=== PATIENT | female | born 1950 | race Caucasian/White ===

== ENCOUNTER 2022-06-11 06:54 | Observation (INO) ==
--- NOTE | 2022-05-13 16:09 | PAT Medication Instructions ---
Medication Instructions Date of Service May 13, 2022 Home Medications acetaminophen 650 mg tablet 650 mg PO Q6H PRN ascorbic acid (vitamin C) 1,000 mg tablet,extended release (Vitamin C ER) 1,000 mg PO QPM azithromycin 250 mg capsule 250 mg PO QAM PRN calcium 500 mg tablet 1,000 mg PO QPM furosemide 20 mg tablet 20 mg PO BID gabapentin 300 mg (9)-600 mg (69) tablet,extended release 24 hr 300 mg PO PM levothyroxine 75 mcg tablet 75 mcg PO QAM liothyronine 25 mcg tablet 12.5 mcg PO QAM melatonin 10 mg tablet 10 mg PO HS metoprolol succinate 25 mg tablet,extended release 24 hr 25 mg PO BID potassium chloride 20 mEq/15 mL oral liquid 20 meq PO BID prednisone 1 mg tablet 3 mg PO BID vitamin B complex 1 tab PO QPM warfarin 5 mg tablet 5 mg PO USEASDIRECTD warfarin 7.5 mg tablet 7.5 mg PO USEASDIRECTD Continue as directed azithromycin 250 mg capsule 250 mg PO QAM PRN(if needed) ASK your prescriber and surgeon warfarin 5 mg tablet 5 mg PO USEASDIRECTD warfarin 7.5 mg tablet 7.5 mg PO USEASDIRECTD DO NOT take the morning of surgery potassium chloride 20 mEq/15 mL oral liquid 20 meq PO BID furosemide 20 mg tablet 20 mg PO BID Take morning of surgery With a small sip of water, OTHERWISE NOTHING TO EAT OR DRINK AFTER MIDNIGHT: prednisone 1 mg tablet 3 mg PO BID metoprolol succinate 25 mg tablet,extended release 24 hr 25 mg PO BID levothyroxine 75 mcg tablet 75 mcg PO QAM liothyronine 25 mcg tablet 12.5 mcg PO QAM acetaminophen 650 mg tablet 650 mg PO Q6H PRN(if needed) Take evening before surgery vitamin B complex 1 tab PO QPM prednisone 1 mg tablet 3 mg PO BID potassium chloride 20 mEq/15 mL oral liquid 20 meq PO BID metoprolol succinate 25 mg tablet,extended release 24 hr 25 mg PO BID melatonin 10 mg tablet 10 mg PO HS gabapentin 300 mg (9)-600 mg (69) tablet,extended release 24 hr 300 mg PO PM furosemide 20 mg tablet 20 mg PO BID calcium 500 mg tablet 1,000 mg PO QPM ascorbic acid (vitamin C) 1,000 mg tablet,extended release (Vitamin C ER) 1,000 mg PO QPM acetaminophen 650 mg tablet 650 mg PO Q6H PRN(if needed) Other Notes If you have any questions please call us at [phone] or [phone] or [phone] or [phone]
--- NOTE | 2022-05-22 12:00 | Anesthesiology Consultation ---
Date of Service May 22, 2022 Assessment & Plan (1) Encounter for pre-operative examination: - Unable to void at PAT: Patient bringing UA sample to [facility] in near future per PAT tech- Awaiting UA report. - Awaiting surgeon-ordered PCP preop evaluation (scheduled 06/03; Dr. Carmen Burkett). - Awaiting surgeon-ordered cardio preop evaluation (scheduled 05/24, [facility] Jaylon/Talat Osorio PAC). - COVID screening: Per assessment on 05/22: No known COVID-19 positive contacts or current COVID-19 related symptoms. Travel screen negative. Patient vaccinated. At surgeon discretion if preop Covid testing being done. - Outpatient joint assessment: Pt currently scheduled for inpatient pathway. If surgeon requests review for outpatient joint pathway, patient is not recommended candidate for outpatient joint program from anesthesia standpoint. - Hx of medication reaction: "Head itching" with medication given to "relax" her in preop setting prior to RCR in . No further details available per pt. - Check coags AM DOS (warfarin instructions per surgeon/prescriber) Chart Review Chart Review: Patient seen in Pre Admission Testing Teaching & Discussion Pre-Anesthesia Teaching/Discussion Notes: Instructed NPO after midnight before surgery,except medications with 15 cc of water. Medication instructions provided according to the PAT guidelines. History Surgery Operation Date: 06/11/22 09:50 Proposed Procedures p Left Total Knee Arthroplasty - Dashawn Sathya Cruz MD Height/Weight Height: 5 ft 1 in Weight: 97.3 kg Allergies Allergy/AdvReac Type Severity Reaction Status Date / Time cephalexin Allergy Mild Hives Verified 05/13/22 13:15 fluoxetine [From Prozac] Allergy Mild Hives Verified 05/13/22 13:15 Penicillins Allergy Mild Hives Verified 05/13/22 13:15 Medications Home Medications Medication Instructions Recorded Confirmed Last Taken acetaminophen 650 mg tablet 650 mg PO Q6H PRN Pain 05/13/22 05/13/22 Unknown ascorbic acid (vitamin C) 1,000 mg 1,000 mg PO QPM 05/13/22 05/13/22 Unknown tablet,extended release (Vitamin C ER) azithromycin 250 mg capsule 250 mg PO QAM PRN dental 05/13/22 05/13/22 Unknown calcium 500 mg tablet 1,000 mg PO QPM 05/13/22 05/13/22 Unknown furosemide 20 mg tablet 20 mg PO BID 05/13/22 05/13/22 Unknown gabapentin 300 mg (9)-600 mg (69) 300 mg PO PM 05/13/22 05/13/22 Unknown tablet,extended release 24 hr levothyroxine 75 mcg tablet 75 mcg PO QAM 05/13/22 05/13/22 Unknown liothyronine 25 mcg tablet 12.5 mcg PO QAM 05/13/22 05/13/22 Unknown melatonin 10 mg tablet 10 mg PO HS 05/13/22 05/13/22 Unknown metoprolol succinate 25 mg 25 mg PO BID 05/13/22 05/13/22 Unknown tablet,extended release 24 hr potassium chloride 20 mEq/15 mL 20 meq PO BID 05/13/22 05/13/22 Unknown oral liquid prednisone 1 mg tablet 3 mg PO BID 05/13/22 05/13/22 Unknown vitamin B complex 1 tab PO QPM 05/13/22 05/13/22 Unknown warfarin 5 mg tablet 5 mg PO USEASDIRECTD 05/13/22 05/13/22 Unknown warfarin 7.5 mg tablet 7.5 mg PO USEASDIRECTD 05/13/22 05/13/22 Unknown Past Medical History Medical History Atrial fibrillation Paroxysmal s/p MAZE- on coumadin Follows with [facility] cardio (Talat Osorio PAC) Kameron's thyroiditis History of CVA (cerebrovascular accident) Evidence of previous stroke noted during head imaging 2011 when patient had TIA History of mitral valve disease s/p MV repair (for severe MR) with Medtronic annuloplasty ring (2010) History of sleep apnea CPAP Hx of congestive heart failure 2010 - Reason for furosemide Obesity Restless leg syndrome Reason for gabapentin Transient ischemic attack (TIA) 2011 - CT/MRI showed hx of previous stroke Exercise / Class Metabolic Activity III < 4 Walking/Shop/Light housework Past Family History Family History Other No pertinent family history Past Surgical History Surgical History History of arthroscopy of right shoulder ~1997 Hx of mitral valve repair 2011 Hx of umbilical hernia repair Hx of wisdom tooth extraction Past Anesthesia History No Family Hx of Anesthesia Complications and Other ("Head itching" with medication given to "relax" her in preop setting prior to RCR in ) History of PONV No Hx of PONV and Hx of Motion Sickness Social History Smoking Status: Never smoker Do You Dip or Chew Tobacco: No Hx Alcohol Use: No Hx Substance Use: No substance use type: does not use Review of Systems Patient denies chest pain, shortness of breath, fever, chills, cough, wheezing, palpitations. Physical Exam Vital Signs VITALS BP 152/93 P 81 TEMP 98.5 SP02 96%RA RESP 16 PHYSICAL Full cervical extension range of motion. Full TMJ range of motion. TMD 3 finger breaths Mallampati Score 2 Dentition: intact, upper front cap Lungs: clear throughout to auscultation Cardiac: regular rate and rhythm, no murmurs noted Spine: normal Carotid arteries: negative bruit Extremities: no edema Lab Results Anesthesia Preop Results Results Anesthesia Widget: WBC 9.32 K/ul (4.8-10.8) 05/22/22 Hgb 13.9 g/dl (12.0-16.0) 05/22/22 Hct 41.2 % (34.1-44.9) 05/22/22 Plt 244 K/uL (130-400) 05/22/22 Na 140 mmol/L (136-145) 05/22/22 K 3.9 mmol/L (3.5-5.1) 05/22/22 Cl 104 mmol/L (98-107) 05/22/22 CO2 28 mmol/L (21-32) 05/22/22 BUN 19 mg/dl (6-23) 05/22/22 Creat 0.78 mg/dl (0.6-1.2) 05/22/22 Glucose Level 98 mg/dl (70-99(Fasting)) 05/22/22 PT 21.2 Seconds (9.0-12.0) H 05/22/22 PTT 37.0 Seconds (21.0-31.0) H 05/22/22 INR 2.1 (0.9-1.1) H 05/22/22 Blood Type A Positive 05/22/22 Antibody Screen NEGATIVE 05/22/22 Testing Electrocardiogram Date: 11/07/21 NSR with sinus arrhythmia at 65bpm. Rightward axis. NS ST/TWA. Chest X-Ray Date: 05/22/22 FINDINGS: Median sternotomy wires are noted as well as a prosthetic cardiac valve. There is moderate cardiomegaly. There is no evidence for pulmonary edema. Symmetric bilateral hilar enlargement likely reflects dilated central pulmonary vessels. No pneumothorax or pleural effusion is noted. There is no consolidation to suggest pneumonia. IMPRESSION: No acute cardiopulmonary findings. Cardiomegaly. Echocardiogram Date: 10/17/21 EF 65-70%. No RWMA except abnormal (dyssynergic) septal motion consistent with post-operative status. Mild cLVH. Moderate LAD. Evidence of posterior MVR. Hemodynamics suggest possible at least mild mitral stenosis (no significant change compared to report from 2019 per report). Mild MI. Moderate AV sclerosis without stenosis. Proximal ascending aorta mildly dilated at 3.6cm. Transverse aorta mildly dilated at 3.5cm. COVID-19 Risk Screen Screening Information COVID-19 Screen Date: 05/22/22 Exposure 21 Days Family/Household +COVID Last 21 Days: No Exposure 10 Days Any COVID Exposure Last 10 Days: No Symptoms Last 10 Days Experienced COVID Sx Last 10 Days: No + COVID 0-90 Days COVID + in Last 0-90 Days: No
[~2022-06-11 06:54] MED LIST: BUPIVACAINE 0.5 % 5 MG/1 ML PF 10ML VIAL ONE; EPINEPHrine INJ 1 MG/ML AMP ONE; LR 500ML BOLUS, THEN 15ML/HR IV SCH; LR 60ML/HR IV SCH; ROPIVACAINE 0.5% 5 MG/ML 30 ML VIAL ONE; ROPIVACAINE 0.5% HCL/PF 150 MG, BUPIVACAINE 0.75% MPF 20 ML, EPINEPHrine 0.15 MG, Ketor... INFIL SCH; Scopolamine 1 MG TDSY TD SCH; TRANEXAMIC ACID 1,000 MG **IV Intra-op IV SCH; TRANEXAMIC ACID 1,000 MG **IV Pre-op IV SCH; VANCOMYCIN HCL 1,500 MG in SODIUM CHLORIDE 0.9% 500 ML IV SCH
[2022-06-11] MEDS: ACETAMINOPHEN 500 MG TAB PO SCH ×3 (07:58→21:01)
[2022-06-11] MEDS ORDERED: LIDOCAINE 2% 2 ML VIAL/AMP(20MG/ML) INFIL ONE (08:07)
[2022-06-11] MEDS ORDERED: PROPOFOL IV EMULSION 10 MG/ML 20 ML VIAL IV ONE ×5 (08:07→13:31)
[2022-06-11] MEDS ORDERED: fentaNYL citrate 100 MCG/2 ML VIAL ONE (08:07)
[2022-06-11] MEDS ORDERED: MIDAZOLAM HCL 1 MG/ML 2ML VIAL ONE ×2 (08:07→09:59)
[2022-06-11] MEDS ORDERED: ONDANSETRON INJ 2 MG/ML 2 ML VIAL ONE ×2 (08:07→09:59)
[2022-06-11 08:09] LABS: Partial Thromboplastin Ratio 1.1; Partial Thromboplastin Time 29.1 Seconds (21.0-31.0); Prothrombin Time 10.7 Seconds (9.0-12.0)
[2022-06-11] MEDS ORDERED: ePHEDrine sulfate 50 MG/ML AMP ONE (08:11)
--- NOTE | 2022-06-11 10:28 | History & Physical Bridge Note ---
Date of Service June 11, 2022 History & Physical Bridge Note I have examined the patient, reviewed the History & Physical and in the interval since the performance of the History & Physical I have noted the following changes of clinical significance: no changes noted Patient is aware of the risks, is asymptomatic, and tested negative for COVID- 19.
[2022-06-11] MEDS ORDERED: ORTHO JOINT ANESTHETIC ONE (10:48)
[2022-06-11] MEDS ORDERED: ePHEDrine sulfate 50 MG/ML SYR ONE (13:04)
--- NOTE | 2022-06-11 14:04 | Post Operative Brief Note ---
Immediate Post Op Note v1 Date of Surgery June 11, 2022 Pre & Post Diagnosis Operation Date: 06/11/22 10:20 Pre-Op Diagnosis: Left knee degenerative joint disease Post-Op Diagnosis: Left knee degenerative joint disease I identified the patient and participated in the time-out.: Yes Procedure Operation Date: 06/11/22 10:20 Actual Procedures p Left Total Knee Arthroplasty(Left) - Dashawn Cruz MD Surgeon Dashawn Cruz MD Bias Binding Folder C MARIKA Young (No fellow avail) Estimated Blood Loss 100 Findings Consistent with Post-Op Diagnosis Fluids 1700 cc Specimens Left knee contents Anesthesia Type MAC Spinal Regional Complications none
--- NOTE | 2022-06-11 14:05 | Operative Report ---
Post Operative Report Pre & Post Diagnosis Operation Date: 06/11/22 10:20 Pre-Op Diagnosis: Left knee degenerative joint disease Post-Op Diagnosis: Left knee degenerative joint disease I identified the patient and participated in the time-out.: Yes Procedure Operation Date: 06/11/22 10:20 Actual Procedures p Left Total knee replacement, imageless computer assisted navigation - Dashawn Cruz MD Surgeon Dashawn Cruz MD Chef Instructor Abbey Young PA-C (No fellow avail) Estimated Blood Loss 100 Findings See Below Examined Under Anesthesia: ROM -- There was 5 degrees hyperextension to 110 degrees of flexion Ligamentous examination -- revealed stable Jeny, posterior drawer, varus and valgus stress at 0 and 30 degrees. [place] Type IV changes of lateral compartment and grade III changes in the medial& patellofemoral compartments. Fluids 1700 cc Specimens Left knee contents Anesthesia Type MAC Spinal Regional Complications none Indications This is a 72-year-old female who has clinical and radiographic findings consistent with osteoarthritis of the a left knee. I recommended that a left total knee replacement be performed. The patient understands the risks of surgery, which include but not limited to: bleeding, infection, re-operation, damage to nerves and arteries, continued knee pain, knee stiffness, DVT, and . The patient understands all of these instructions and explanations, all of his questions have been satisfactorily addressed and the patient has elected to proceed. Informed consent was signed. Description of Procedure IMPLANTS: 1. Femur: Triathlon #4 Left PS. 2. Tibia: Triathlon #3 [place]. 3. Insert: Triathlon #3 x 9 mm PS X3 poly. 4. Patella: Triathlon A32 x 10 mm X3 poly. 5. Palacos cement. Abbey Young PA-C is assisting with positioning, retracting, and closure due to fellow not available. Procedure: The patient was taken to the Operating Room and placed in the supine position after spinal and adductor canal nerve block was administered. My initials and a multidisciplinary time-out were used to identify the left leg as the correct operative limb. A tourniquet was placed high in the thigh. Prior to the incision, 15mg/kg of intravenous Vancomycin was given. The left leg was then prepped and draped in a standard sterile fashion. An Esmarch was used to exsanguinate the leg and the tourniquet was inflated to 250 mmHg. The planned mid-line 20 cm incision was created exposing the extensor mechanism. The medial parapatellar arthrotomy was made and the patella was everted. The patella was addressed first. It was prepared by reaming from 25 mm down to 14 mm. An A32 button was found to fit best. The peg holes were made in the standard fashion. The femur was addressed next and using computer assisted OrthoAlign with 3 degrees of flexion and 1 degree of valgus, removing 9 mm in the standard fashion for the distal cut. The cut was made and the 4-in-1 cutting block for a size 4 femur was placed. These cuts and the cuts to place the box were made in the standard fashion. The lateral femoral condyle needed to be drilled with a pin to allow cement interface. Our attention was then drawn to the tibia cut with using imageless computer assisted OrthoAlign, taking 2 mm from the lateral low side. There was sufficient extension and flexion gap to fit a 9 mm spacer. A #3 Tibial baseplate fit well. A trial with a 9 mm spacer showed excellent stability in both flexion and extension, with good ligament balance, and thumbs free patellar tracking. Range of motion of 0-110 degrees. The tibial baseplate was prepped for the keel and stem. All components were removed. The tourniquet was deflated. Hemostasis was obtained. 90 ml of total knee cocktail were injected into the soft tissues and periosteum. After a 10 minute break, the limb was exsanguinated again and the tourniquet was re-inflated. All surfaces were copiously irrigated prior to placement of the components. The femoral component followed by Tibial baseplate were cemented in place and the 9 mm X3 poly was placed. Next, the patellar button was placed using the same Palacos cement. Once the cement had cured, the range of motion and stability were unchanged. The extensor mechanism was closed with 1-0 and 0 Vicryl with the knee bent approximately 60 degrees in a standard fashion. The peritenon and deep fascia was closed with 2-0 Vicryl. The subcutaneous layer was closed with 3-0 Vicryl. The skin was closed with Zipline and shield. The limb was cleaned and dried. 4x4 dressing was placed over top followed by ABDs, sterile Webril, and a foot to thigh Papo bandage. The patient was then transferred to the Recovery Room in stable condition. The sponge and needle counts were correct. POST-OP INSTRUCTIONS: The patient will be WBAT. The patient will be admitted to the hospital. Labs will be obtained during the stay. DVT prophylaxis will included resuming her Coumadin which will begin tonight, TEDs, and mechanical foot pumps. The dressing will be changed prior to their discharge or postop day #2 and covered with a Silverlon dressing, whichever comes first as long as the incision is dry. I attest to the content of the Intraoperative Record and any orders documented therein. Any exceptions are noted below.
--- NOTE | 2022-06-11 14:24 | Operative Report ---
Post Operative Report Pre & Post Diagnosis Operation Date: 06/11/22 10:20 Pre-Op Diagnosis: Left knee degenerative joint disease Post-Op Diagnosis: Left knee degenerative joint disease I identified the patient and participated in the time-out.: Yes Procedure Operation Date: 06/11/22 10:20 Actual Procedures p Left Total Knee Arthroplasty(Left) - Dashawn Sathya Cruz MD Surgeon D Nancy CARDOZA Software Engineer Intern Abbey Young PA-C (No fellow avail) Estimated Blood Loss 100 Findings Consistent with Post-Op Diagnosis see operative report Specimens see operative report Drains none Complications none Disposition Accompanied Patient To Recovery: Yes Indications This 72-year-old female presented to the office with complaints of persisting left knee pain. She had tried conservative care measures without improvement. She elected to proceed with surgical intervention after being educated about potential risks and outcomes. Preoperative imaging was obtained. Description of Procedure Patient was administered a spinal anesthetic and then taken to the operating room where she was given sedation. She was prepped and draped in the usual sterile fashion. Please see Dr. Cruz's operative report for specifics of the procedure. I was present for the entire case from initial patient positioning through final wound closure. Assistance was provided in tissue retraction, hemostasis, trial implant placement, final implant placement, and final wound closure. Patient was taken to the recovery room in satisfactory condition. I attest to the content of the Intraoperative Record and any orders documented therein. Any exceptions are noted below.
[2022-06-11] MEDS ORDERED: HYDROmorphone INJ 1 MG/ML SYRINGE IV PRN (14:53)
[2022-06-11] MEDS ORDERED: ATROPINE SULFATE 0.1 MG/ML 10ML SYR IV PRN (14:53)
[2022-06-11] MEDS ORDERED: ePHEDrine sulfate 50 MG/ML AMP IV PRN (14:53)
[2022-06-11] MEDS ORDERED: ONDANSETRON INJ 2 MG/ML 2 ML VIAL IV PRN ×2 (14:53→16:09)
[2022-06-11] MEDS ORDERED: FLUMAZENIL 0.1 MG/1 ML 10 ML VIAL IV PRN (14:53)
[2022-06-11] MEDS ORDERED: PROMETHAZINE HCL 12.5 MG in SODIUM CHLORIDE 0.9% 50 ML IV PRN (14:53)
[2022-06-11] MEDS ORDERED: NALOXONE HCL 0.4 MG/1 ML VIAL/CARP IV PRN ×2 (14:53→16:09)
[2022-06-11] MEDS ORDERED: fentaNYL citrate 100 MCG/2 ML VIAL IV PRN (14:53)
--- NOTE | 2022-06-11 15:02 | XRay Report ---
XR knee LT 1 or 2V routine CLINICAL HISTORY: Postoperative evaluation. COMPARISON: Left knee radiographs April 18, 2022. FINDINGS: Alignment of the total left knee arthroplasty is anatomic. There is no periprosthetic frac ture or unexpected radiopaque foreign body. IMPRESSION: Expected findings following total left knee arthroplasty. ACT 112: Negative or not required by law. Electronically signed by: Akin Rodriguez M.D. 06/11/2022 3:01 PM
--- NOTE | 2022-06-11 15:12 | Anesthesiology Progress Note ---
Date of Service June 11, 2022 Anesthesia Post Procedure Vital Signs Vital Signs: Temp Pulse Pulse Resp BP Pulse Ox O2 Del Method 06/11/22 14:35 61 26 H 113/68 96 Room Air 06/11/22 14:55 36.2 C L 62 13 127/78 100 Room Air 06/11/22 14:45 62 14 113/68 98 Room Air 06/11/22 14:25 66 23 115/71 100 Room Air 06/11/22 14:18 36.2 C L 66 14 123/57 L 99 Room Air 06/11/22 07:40 72 20 161/91 H 98 Room Air Transfer of Care Handoff Completed per policy Notes Mental Status: alert / awake / arousable Patient Amnestic to Procedure: Yes Nausea / Vomiting: adequately controlled Pain: adequately controlled Airway Patency, RR, SpO2: stable & adequate BP & HR: stable & adequate Hydration State: stable & adequate Neuraxial Anesthesia: was administered and sensory block is resolving Anesthetic Complications: no major complications apparent
[2022-06-11] MEDS ORDERED: Scopolamine CHECK PATCH PLACEMENT SCH (16:00)
[2022-06-11] MEDS ORDERED: ALUMINUM/MAGNESIUM SUSP 30 ML UDC PO PRN (16:09)
[2022-06-11] MEDS ORDERED: bisacodyL 10 MG SUPP PR PRN (16:09)
[2022-06-11] MEDS ORDERED: VANCOMYCIN CONSULT ACTIVE PRN (16:09)
[2022-06-11] MEDS ORDERED: MAGNESIUM HYDROXIDE SUSP 30 ML UDC PO PRN (16:09)
[2022-06-11] MEDS ORDERED: METOCLOPRAMIDE HCL INJ 5 MG/ML 2 ML VIAL IV PRN (16:09)
[2022-06-11] MEDS ORDERED: diphenhydrAMINE 50 MG/ML VIAL IV PRN (16:09)
--- NOTE | 2022-06-11 16:56 | Hospitalist Consultation ---
Date of Consultation June 11, 2022 Assessment & Plan (1) Atrial fibrillation: Carla is a 72yo F with a PMHx of HTN, GERD< MR, Afib, Hashimotos, TERESA on CPAP, PMR, CHF, HLD s/p scheduled L TKA S/p left total knee arthroplasty DVT prophylaxis, pain control, ambulation per primary team [employer] patient is on warfarin for A. fib 12-24 hours postoperatively recommend resuming warfarin with 1mpk BID lovenox bridge Takes warfarin, med list updated to 7.5mg daily. CHF with preserved ejection fraction No acute decompensation/evidence of volume overload Stress Test 06/04/22: NOrmal myocardial perfusion, no reversible or fixed ischemia, LVSF normal, EF normal. No chest pain, chest pressure, difficulty breathing at bedside May resume Lasix daily tomorrow Afib -Warfarin/Lovenox as noted above Continue metoprolol succinate 25 mg twice daily Warfarin dose updated, patient reports takes 7.5 mg every day no longer alternates with 5 mg GERD -Continue PPI HLD - Statin intolerant Hypothroidism -Continue Synthroid 75 mcg daily - liothyronine 12.5 mcg daily PMR - Weaning steroids as outpatient -Initially entered at 3mg BID prednisone, confirmed with pt per rheum should be on 1mg daily and did take 06/11. Will update for 06/12 dose Outpatient follow-up to room HTN - MTP as noted DVT prophylaxis: Warfarin Diet: Heart healthy Disposition: Medical/surgical CODE STATUS: Full code (2) Kameron's thyroiditis: (3) History of sleep apnea: (4) Hx of congestive heart failure: (5) Transient ischemic attack (TIA): (6) History of mitral valve disease: (7) History of CVA (cerebrovascular accident): History of Present Illness Attending Physician: Dashawn Cruz MD History of Present Illness Carla is a 72yo F with a PMHx of HTN, GERD< MR, Afib, Hashimotos, TERESA on CPAP, PMR, CHF, HLD s/p scheduled L TKA Stress Test 06/04/22: NOrmal myocardial perfusion, no reversible or fixed ischemia, LVSF normal, EF normal. Lasix 20mg daily Gabapentin 300mg TID for restless leg KCL 10meq daily Synthroid 75mcg daily AM Liothyronine 12.5mcg daily AM MTP Succinate 25mg BID Prednisone documented as 3mg BID --> confirmed with pt per rheum 1mg daily and did take this morning. Warfarin: previously documented as 2.5mg Tu, Th, Sat, Chandler & 5mg dablet daily; discussed and confirmed with pt that she is actulaly now on 7.5mg daily and was bridged with lovenox until yesterday. Baldomero is seen at the bedside. She is awake, alert and feels well after surgery. She reports no pain after surgery, feels her feet were intermittently tingly in the toes bilaterally but this is improving. Sensation to soft touch is intact, and she is able to move her ankles and toes without difficulty. She denies chest pain, chest pressure, shortness of breath, lightheadedness, dizziness, fever, chills. She is using her incentive spirometer. Clarified medications with the patient, she is a good historian and notes updated medications as above. Pertinent changes from what was documented include prednisone is actually 1 mg daily in the morning, and warfarin is now 7.5 mg every day rather than alternating with 5 mg. No questions or concerns at bedside. Just finished a meal which she tolerated with good appetite and no nausea. No concerns at bedside, normotensive. Medical History: Reviewed Medications: Reviewed Surgical History: Reviewed Allergies: Reviewed Social History: No tobacco/alcohol use Code Status: Full Allergies Allergy/AdvReac Type Severity Reaction Status Date / Time cephalexin Allergy Mild Hives Verified 06/11/22 07:44 fluoxetine [From Prozac] Allergy Mild Hives Verified 06/11/22 07:44 Penicillins Allergy Mild Hives Verified 06/11/22 07:44 Home Medications Medication Instructions Recorded Confirmed Type acetaminophen 650 mg tablet 650 mg PO Q6H PRN Pain 05/13/22 06/11/22 History ascorbic acid (vitamin C) 1,000 mg 1,000 mg PO QPM 05/13/22 06/11/22 History tablet,extended release (Vitamin C ER) azithromycin 250 mg capsule 250 mg PO QAM PRN dental 05/13/22 06/11/22 History calcium 500 mg tablet 1,000 mg PO QPM 05/13/22 06/11/22 History furosemide 20 mg tablet 20 mg PO BID 05/13/22 06/11/22 History gabapentin 300 mg (9)-600 mg (69) 300 mg PO PM 05/13/22 06/11/22 History tablet,extended release 24 hr levothyroxine 75 mcg tablet 75 mcg PO QAM 05/13/22 06/11/22 History liothyronine 25 mcg tablet 12.5 mcg PO QAM 05/13/22 06/11/22 History melatonin 10 mg tablet 10 mg PO HS 05/13/22 06/11/22 History metoprolol succinate 25 mg 25 mg PO BID 05/13/22 06/11/22 History tablet,extended release 24 hr potassium chloride 20 mEq/15 mL 20 meq PO BID 05/13/22 06/11/22 History oral liquid prednisone 1 mg tablet 1 mg PO DAILY 05/13/22 06/11/22 History vitamin B complex 1 tab PO QPM 05/13/22 06/11/22 History warfarin 7.5 mg tablet 7.5 mg PO DAILY 05/13/22 06/11/22 History Patient History Medical History (Updated 06/11/22 @ 17:24 by Sundeep Pritchett MD) Atrial fibrillation Paroxysmal s/p MAZE- on coumadin Follows with [facility] cardio (Talat Osorio [facility]) Kameron's thyroiditis History of CVA (cerebrovascular accident) Evidence of previous stroke noted during head imaging 2011 when patient had TIA History of mitral valve disease s/p MV repair (for severe MR) with Medtronic annuloplasty ring (2010) History of sleep apnea CPAP Hx of congestive heart failure 2010 - Reason for furosemide Obesity Restless leg syndrome Reason for gabapentin Transient ischemic attack (TIA) 2011 - CT/MRI showed hx of previous stroke Surgical History History of arthroscopy of right shoulder ~1997 Hx of mitral valve repair 2011 Hx of umbilical hernia repair Hx of wisdom tooth extraction Family History Other No pertinent family history Social History Smoking Status: Never smoker Second Hand Exposure: No; Do You Dip or Chew Tobacco: No; Tobacco Cessation Education Requested by Patient: No Hx Alcohol Use: No Hx Substance Use: No Preferred Language: Tamazight Communication Ability: Effective Straw Boss Required: No Beliefs That Will Affect Care: None Current Living Situation: Spouse Other Information That Helps Us Care for You: No Feels Safe at Home: Yes Safety Concerns: Feels Safe At This Time Assistive Devices: Cane, Glasses and Walker Review of Systems Review of Systems: All systems reviewed & are unremarkable except as noted in HPI & below Physical Exam Physical Exam: General: A&Ox3. NAD. Cooperative. Pleasant, conversive, answers questions appropriately with linear thought process HEENT: Atraumatic, normocephalic. Vision/hearing grossly intact. Pupils equal and reactive to light Pulm: CTAB A&P. -wheezes, -rales, -rhonchi. Symmetrical chest rise. No increased work of breathing. No respiratory distress. Cardiac: RRR, -mrg. Radial pulses intact and symmetrical. Abdominal: Nontender, nondistended, soft. BS present. Extremities: Left knee in postsurgical wrap and dressing. Sensation soft touch in toes intact bilaterally, able to wiggle toes without difficulty. PT pulse intact bilaterally. Results & Data Results & Data ([facility]) Vital Signs (Past 12 Hours) Vital Signs Temp Pulse Pulse Resp BP Pulse Ox O2 Del Method 06/11/22 16:31 36.7 C 67 18 149/85 H 100 06/11/22 16:18 Room Air 06/11/22 15:51 36.4 C L 69 18 127/78 96 Room Air 06/11/22 15:25 61 13 117/67 96 Room Air 06/11/22 14:35 61 26 H 113/68 96 Room Air 06/11/22 14:55 36.2 C L 62 13 127/78 100 Room Air 06/11/22 14:45 62 14 113/68 98 Room Air 06/11/22 14:25 66 23 115/71 100 Room Air 06/11/22 14:18 36.2 C L 66 14 123/57 L 99 Room Air 06/11/22 07:40 72 20 161/91 H 98 Room Air PG Care Time/CCT Total # of Minutes Spent Total Time Spent with Patient: Total time spent is greater than 50% in coordination of care (as documented) at patient's floor/unit and/or counseling patient: Coding Level of Care Code 38826 Inpt Consult Level 4 Diagnoses Atrial fibrillation I48.91 Kameron's thyroiditis E06.3 History of sleep apnea Z86.69 Hx of congestive heart failure Z86.79 Transient ischemic attack (TIA) G45.9 History of mitral valve disease Z86.79 History of CVA (cerebrovascular accident) Z86.73
[2022-06-11] MEDS: SODIUM CHLORIDE 0.9% 1000ML 1,000 ML IV SCH (16:58)
[2022-06-11] MEDS ORDERED: WARFARIN SOD 5 MG TAB PO ONE (18:00)
[2022-06-11] MEDS: KETOROLAC TROMETHAMINE 15 MG/ML VIAL IV SCH (18:14)
[2022-06-11] MEDS: FUROSEMIDE 20 MG TAB PO SCH (18:16)
[2022-06-11] MEDS: ASCORBIC ACID 500 MG TAB PO SCH (18:16)
[2022-06-11] MEDS: FERROUS GLUCONATE 324 MG TAB PO SCH (18:18)
[2022-06-11] MEDS ORDERED: VANCOMYCIN HCL 1,500 MG in SODIUM CHLORIDE 0.9% 500 ML IV SCH (20:00)
[2022-06-11] MEDS: SENNA 8.6 MG TAB PO SCH (20:11)
[2022-06-11] MEDS: DOCUSATE SODIUM 100 MG CAP PO SCH (20:12)
[2022-06-11] MEDS: MELATONIN 3 MG TAB PO SCH (20:13)
[2022-06-11] MEDS: METOPROLOL SUCC 25MG EXT REL TAB PO SCH (20:13)
[2022-06-11] MEDS: POTASSIUM CHLORIDE 20 MEQ/15 ML UDC PO SCH (20:14)
[2022-06-11] MEDS: GABAPENTIN 300 MG CAP PO SCH (20:14)
[2022-06-11] MEDS ORDERED: predniSONE 1 MG TAB PO SCH (21:00)
[2022-06-11] MEDS: oxyCODONE HCL IR 5 MG TAB (IMMEDIATE RELEASE) PO PRN (21:01)
[2022-06-12] MEDS: KETOROLAC TROMETHAMINE 15 MG/ML VIAL IV SCH ×3 (00:24→11:58)
[2022-06-12] MEDS ORDERED: VANCOMYCIN HCL 1,500 MG in SODIUM CHLORIDE 0.9% 250 ML IV SCH (00:30)
[2022-06-12] MEDS: ACETAMINOPHEN 500 MG TAB PO SCH ×3 (05:45→21:05)
[2022-06-12] MEDS: LIOTHYRONINE SODIUM 25 MCG TAB PO SCH (05:45)
[2022-06-12] MEDS: LEVOTHYROXINE SODIUM 75 MCG TABLET PO SCH (05:47)
[2022-06-12] MEDS: SODIUM CHLORIDE 0.9% 1000ML 1,000 ML IV SCH (06:02)
[2022-06-12 06:45] LABS: Hematocrit (blood only) 33.5 % (34.1-44.9); Hemoglobin 11.4 g/dl (12.0-16.0); Mean Corpuscular Hemoglobin 31.8 pg (25.0-34.0); Mean Corpuscular Volume 93.6 fL (80.0-100.0); Mean Platelet Volume 10.4 fL (9.4-12.3); Platelet Count 185 K/uL (130-400); RDW Coefficient of Variation 12.3 % (11.5-14.5); RDW Standard Deviation 42.5 fL (36.4-46.3); Red Blood Count 3.58 M/uL (3.93-5.22); White Blood Count 11.81 K/ul (4.8-10.8)
[2022-06-12 07:09] LABS: BUN Creatinine Ratio 25.6 (10-20); Calcium 8.6 mg/dl (8.5-10.1); Creatinine Clr Calc Pharmacy 65.1 ml/min; Est GFR (African American) 82.9 ml/min; Est GFR (Non-African American) 71.5 ml/min; Potassium 4.2 mmol/L (3.5-5.1)
--- NOTE | 2022-06-12 07:35 | Orthopedic Progress Note ---
Date of Service June 12, 2022 Assessment & Plan (1) Osteoarthritis of left knee: Plan: POD #1 s/p L TKA, doing as well as expected. Resume diet. WBAT with walker. OOB to chair. Continue pain control. DVT prophylaxis: TEDs 3 weeks, foot pumps while in hospital, resume Coumadin. Plan to change dressing to Silverlon prior to discharge or POD #2, whichever comes first, if incision is dry. PT/OT. Appreciate medicine input. D/C planning to home. Admission and Anticipated Discharge Date Admission Date: June 11, 2022 Subjective Dull ache in the left knee Physical Exam Physical Exam: LLE: Dressing is clean, dry, intact. Sensation to light touch is intact. Calf soft non-tender. Wiggling toes. Able preform straight leg raise. Results & Data ([facility]) Vital Signs (Past 12 Hours) Vital Signs Temp Pulse Resp BP Pulse Ox O2 Del Method 06/12/22 02:56 36.5 C 72 20 107/66 92 Room Air 06/11/22 20:00 Room Air, CPAP 06/11/22 22:59 37.5 C 83 18 101/60 92 CPAP Laboratory Results Laboratory Results WBC 11.81 K/ul (4.8-10.8) H 06/12/22 06:07 RBC 3.58 M/uL (3.93-5.22) L 06/12/22 06:07 Hgb 11.4 g/dl (12.0-16.0) L 06/12/22 06:07 Hct 33.5 % (34.1-44.9) L 06/12/22 06:07 MCV 93.6 fL (80.0-100.0) 06/12/22 06:07 MCH 31.8 pg (25.0-34.0) 06/12/22 06:07 MCHC 34.0 g/dL (32.0-36.0) 06/12/22 06:07 RDW Std Deviation 42.5 fL (36.4-46.3) 06/12/22 06:07 RDW Coeff of Vandana 12.3 % (11.5-14.5) 06/12/22 06:07 Plt Count 185 K/uL (130-400) 06/12/22 06:07 MPV 10.4 fL (9.4-12.3) 06/12/22 06:07 PT 11.0 Seconds (9.0-12.0) 06/12/22 06:07 INR 1.0 (0.9-1.1) 06/12/22 06:07 APTT 29.1 Seconds (21.0-31.0) 06/11/22 07:38 PTT Ratio 1.1 06/11/22 07:38 Sodium 137 mmol/L (136-145) 06/12/22 06:07 Potassium 4.2 mmol/L (3.5-5.1) 06/12/22 06:07 Chloride 106 mmol/L (98-107) 06/12/22 06:07 Carbon Dioxide 24 mmol/L (21-32) 06/12/22 06:07 Anion Gap 7 (3-11) 06/12/22 06:07 BUN 21 mg/dl (6-23) 06/12/22 06:07 Creatinine 0.82 mg/dl (0.6-1.2) 06/12/22 06:07 Est Cr Clr Drug Dosing 65.1 ml/min 06/12/22 06:07 Est GFR ( Amer) 82.9 ml/min 06/12/22 06:07 Est GFR (Non-Af Amer) 71.5 ml/min 06/12/22 06:07 BUN/Creatinine Ratio 25.6 (10-20) H 06/12/22 06:07 Glucose 96 mg/dl (70-99(Fasting)) 06/12/22 06:07 Calcium 8.6 mg/dl (8.5-10.1) 06/12/22 06:07 SARS-CoV-2, RNA, NAAT NEGATIVE (NEGATIVE) 06/11/22 Unknown Impressions Knee X-Ray 06/11/22 14:37 XR knee LT 1 or 2V routine CLINICAL HISTORY: Postoperative evaluation. COMPARISON: Left knee radiographs April 18, 2022. FINDINGS: Alignment of the total left knee arthroplasty is anatomic. There is no periprosthetic fracture or unexpected radiopaque foreign body. IMPRESSION: Expected findings following total left knee arthroplasty. ACT 112: Negative or not required by law. Electronically signed by: Akin Rodriguez M.D. 06/11/2022 3:01 PM
[2022-06-12] MEDS ORDERED: dexAMETHasone 10 MG in SYRINGE 0 ML IV SCH (08:00)
--- NOTE | 2022-06-12 08:27 | Hospitalist Progress Note ---
Date of Service June 12, 2022 Assessment & Plan (1) Osteoarthritis of left knee: Plan: Carla is a 72yo F with a PMHx of HTN, GERD< MR, Afib, Hashimotos, TERESA on CPAP, PMR, CHF, HLD s/p scheduled L TKA POD # 1 S/p left total knee arthroplasty with Dr Cruz 06/11. EBL 100cc. fluids 1700cc Pain control/bowel regimen per primary service *Started iron PO BID per primary service -- issues with constipation at baseline, decreased to once daily. No prior iron studies --> added miralax, increase as needed DVT prophylaxis per primary service -- patient on coumadin 7.5mg daily for hx afib. --> orthopedics given 5mg coumadin evening 06/11, additional 5mg ordered for tonight --> messaged orthopedics to increase the coumadin for 7.5mg for today and add on Lovenox bridge 1mg/kg until INR therapeutic (INR 1.0 on AM labs) --> no response yet, would like to start lovenox richy if bleeding felt stable PT/OT per primary service PMR Hx of such Weaning steroids as outpatient--> initially entered at 3mg BID prednisone, confirmed with pt per rheum should be on 1mg daily and did take 06/11 -- updated for dose 06/12 Decadron 8mg PO x 1 given 06/12 am -- hx PMR, no stress dose steroids needed currently. Follows with Lisbeth Juan from [facility] [place], and states had been able to wean steroids to prednisone 1mg daily Follow up outpatient with Dr Juan with Rheumatology PT/OT consulted (2) Atrial fibrillation: Plan: hx mitral valve insufficinecy s/p mitral valve repair w/ Medtronic annuloplasty ring [facility] in [place], paroxysmal atrial fibrillation s/p MAZE, Hx HFpEF--> follows with Cardiology in [place] (Talat Osorio PA-C). Per note, pt had gone into afib 04/30, and arranged for ANG and cardioversion but patient converted to SR prior to that. Holter didn't show any afib at that time. Elected to continue current therapy/not pursue ablation at that time. Hx hypothyroidism/Hashimotos and on Synthroid/cytomel. No recent TSH in system, will add to AM labs w/ reflex Continue metoprolol succinate 25mg BID Warfarin dose updated, patient reports takes 7.5 mg every day no longer alternates with 5 mg --> given 5mg Coumadin last evening 06/11, additional 5mg ordered for tonight 06/12 -- see above regarding increased dose/lovenox bridge (3) Kameron's thyroiditis: Plan: Will check TSH w/ next labs given patient in/out afib last cards office and no values in system -IN meantime, continue Synthroid 75 mcg daily, liothyronine 12.5 mcg daily (4) History of sleep apnea: Plan: Hx of such, no CPAP ordered --> ordered for tonight given continued inpatient stay (5) Hx of congestive heart failure: Plan: CHF with preserved ejection fraction -- last ECHO October 2021 with EF 65-70% No acute decompensation/evidence of volume overload Stress Test 06/04/22: NOrmal myocardial perfusion, no reversible or fixed ischemia, LVSF normal, EF normal. No chest pain, chest pressure, difficulty breathing at bedside Resumed lasix 20mg BID, did have some slight swelling to LE this morning --- monitor for any evidence DVT while getting patient back into therapeutic range Monitor BMP in AM (6) History of mitral valve disease: Plan: hx repair as above Plan continued inpatient stay recommend starting lovenox bridge for patient for DVT prophylaxis until INR therapeutic. Messaged ortho MARIKA and provider regarding recommendations as well hospitalist group will follow along, please call with any questions/concerns Admission and Anticipated Discharge Date Admission Date: June 11, 2022 Supervising Physician Co-Signing Physician Notes PA Supervision Note: I did not personally see or examine the patient today, but I verified all townsend points of SHA Arreaga's assessment and plan with the following exceptions/additions: There is no need for bridging therapeutic Lovenox for Afib when she is in a normal sinus rhythm here. Increased risk for bleeding. Dc Lovenox and simply resumed warfarin-this will need to be redosed tomorrow Subjective Patient eval this morning. Doing alright, only able to ambulate about 15 feet with PT, rec to continue inpatient stay. Passing some gas but no BM. Typically takes Benefiber in AM, eats raisin bran, and takes miralax on occasion. WIll ensure on regimen/increase if needed. Had episode of urinary retention this morning requiring straight cath, no lower abdominal pain. No fever/chills, chest pain, shortness of breath, nausea or vomiting. Got dose of decadron this morning, also receiving scheduled toradol. Does have some tightness around taina hose -- asking RN for larger size as rolling down. Review of Systems Review of Systems: All systems reviewed & are unremarkable except as noted in HPI & below Physical Exam Physical Exam: General: WD/WN obese female sitting up in chair, NAD HEENT: head normocephalic, atraumatic, mmm, trachea midline without deviation Resp: decreased air movement bilaterally due to decreased effort, no wheezing/crackles, diminished in the bases, 95% on RA CV: RRR, +murmur, trace edema b/l LE, no calf tenderness, pulses palpable, sensation intact, cap refill wnl GI: +BS, +distended, nontender : no jernigan MSK/Neuro: L knee dressing c/d/i, avery wrap and ice present, able to wiggle toes/pulses palpable, sensation intact distally Skin: warm, dry Psych: AOx3, cooperative, pleasant Results & Data Results & Data ([facility]) Vital Signs (Past 12 Hours) Vital Signs Temp Pulse Resp BP Pulse Ox O2 Del Method 06/12/22 08:11 36.5 C 68 18 112/71 93 06/12/22 02:56 36.5 C 72 20 107/66 92 Room Air 06/11/22 22:59 37.5 C 83 18 101/60 92 CPAP Laboratory Results 06/12/22 06/12/22 06/12/22 Range/Units 06:07 06:07 06:07 WBC (4.8-10.8) K/ul RBC (3.93-5.22) M/uL Hgb (12.0-16.0) g/dl Hct (34.1-44.9) % MCV (80.0-100.0) fL MCH (25.0-34.0) pg MCHC (32.0-36.0) g/dL RDW Std Deviation (36.4-46.3) fL RDW Coeff of Vandana (11.5-14.5) % Plt Count (130-400) K/uL MPV (9.4-12.3) fL PT 11.0 (9.0-12.0) Seconds INR 1.0 (0.9-1.1) Sodium 137 (136-145) mmol/L Potassium 4.2 (3.5-5.1) mmol/L Chloride 106 (98-107) mmol/L Carbon Dioxide 24 (21-32) mmol/L Anion Gap 7 (3-11) BUN 21 (6-23) mg/dl Creatinine 0.82 (0.6-1.2) mg/dl Est Cr Clr Drug Dosing 65.1 ml/min Est GFR ( Amer) 82.9 ml/min Est GFR (Non-Af Amer) 71.5 ml/min BUN/Creatinine Ratio 25.6 H (10-20) Glucose 96 (70-99(Fasting)) mg/dl Calcium 8.6 (8.5-10.1) mg/dl Hepatitis C Ab (EIA) Pending Hep C Ab Signal/Cutoff Pending 06/12/22 Range/Units 06:07 WBC 11.81 H (4.8-10.8) K/ul RBC 3.58 L (3.93-5.22) M/uL Hgb 11.4 L (12.0-16.0) g/dl Hct 33.5 L (34.1-44.9) % MCV 93.6 (80.0-100.0) fL MCH 31.8 (25.0-34.0) pg MCHC 34.0 (32.0-36.0) g/dL RDW Std Deviation 42.5 (36.4-46.3) fL RDW Coeff of Vandana 12.3 (11.5-14.5) % Plt Count 185 (130-400) K/uL MPV 10.4 (9.4-12.3) fL PT (9.0-12.0) Seconds INR (0.9-1.1) Sodium (136-145) mmol/L Potassium (3.5-5.1) mmol/L Chloride (98-107) mmol/L Carbon Dioxide (21-32) mmol/L Anion Gap (3-11) BUN (6-23) mg/dl Creatinine (0.6-1.2) mg/dl Est Cr Clr Drug Dosing ml/min Est GFR ( Amer) ml/min Est GFR (Non-Af Amer) ml/min BUN/Creatinine Ratio (10-20) Glucose (70-99(Fasting)) mg/dl Calcium (8.5-10.1) mg/dl Hepatitis C Ab (EIA) Hep C Ab Signal/Cutoff Diagnostic Findings Knee X-Ray 06/11/22 14:37 XR knee LT 1 or 2V routine CLINICAL HISTORY: Postoperative evaluation. COMPARISON: Left knee radiographs April 18, 2022. FINDINGS: Alignment of the total left knee arthroplasty is anatomic. There is no periprosthetic fracture or unexpected radiopaque foreign body. IMPRESSION: Expected findings following total left knee arthroplasty. ACT 112: Negative or not required by law. Electronically signed by: Akin Rodriguez M.D. 06/11/2022 3:01 PM PG Care Time/CCT Total # of Minutes Spent Total Time Spent with Patient: Total time spent is greater than 50% in coordination of care (as documented) at patient's floor/unit and/or counseling patient: Coding Level of Care Code 58034 Subseq Obs Care Lvl 3 Diagnoses Osteoarthritis of left knee M17.12 Atrial fibrillation I48.91 Kameron's thyroiditis E06.3 History of sleep apnea Z86.69 Hx of congestive heart failure Z86.79 History of mitral valve disease Z86.79
[2022-06-12] MEDS: DOCUSATE SODIUM 100 MG CAP PO SCH ×2 (08:28→21:04)
[2022-06-12] MEDS: ASCORBIC ACID 500 MG TAB PO SCH ×2 (08:28→16:39)
[2022-06-12] MEDS: MULTIVITAMIN TAB PO SCH (08:29)
[2022-06-12] MEDS: POTASSIUM CHLORIDE 20 MEQ/15 ML UDC PO SCH ×2 (08:29→21:05)
[2022-06-12] MEDS: FERROUS GLUCONATE 324 MG TAB PO SCH (08:29)
[2022-06-12] MEDS: METOPROLOL SUCC 25MG EXT REL TAB PO SCH ×2 (08:29→21:08)
[2022-06-12] MEDS: FUROSEMIDE 20 MG TAB PO SCH ×2 (08:30→16:39)
[2022-06-12] MEDS: oxyCODONE HCL IR 5 MG TAB (IMMEDIATE RELEASE) PO PRN ×2 (08:32→19:15)
[2022-06-12] MEDS: predniSONE 1 MG TAB PO SCH (09:09)
[2022-06-12] MEDS: POLYETHYLENE (MIRALAX) 17 GM PACK PO SCH (15:53)
[2022-06-12] MEDS: ORTHO WARFARIN NOMOGRAM SCH (15:54)
[2022-06-12] MEDS ORDERED: WARFARIN SOD 5 MG TAB PO SCH (16:00)
[2022-06-12] MEDS ORDERED: ENOXAPARIN 100 MG/1ML SYR SQ SCH (16:00)
[2022-06-12] MEDS ORDERED: WARFARIN SOD 7.5 MG TAB PO SCH (16:00)
[2022-06-12] MEDS: MELATONIN 3 MG TAB PO SCH (21:04)
[2022-06-12] MEDS: GABAPENTIN 300 MG CAP PO SCH (21:04)
[2022-06-12] MEDS: SENNA 8.6 MG TAB PO SCH (21:04)
[2022-06-13] MEDS: oxyCODONE HCL IR 5 MG TAB (IMMEDIATE RELEASE) PO PRN (02:54)
[2022-06-13] MEDS: LIOTHYRONINE SODIUM 25 MCG TAB PO SCH (05:53)
[2022-06-13] MEDS: LEVOTHYROXINE SODIUM 75 MCG TABLET PO SCH (05:54)
[2022-06-13] MEDS: ACETAMINOPHEN 500 MG TAB PO SCH ×3 (05:54→21:31)
[2022-06-13] MEDS: HYDROmorphone INJ 0.5 MG/0.5 ML SYR IV PRN ×3 (06:05→20:45)
[2022-06-13 07:31] LABS: Hematocrit (blood only) 33.3 % (34.1-44.9); Hemoglobin 11.1 g/dl (12.0-16.0); Mean Corpuscular Hemoglobin 31.7 pg (25.0-34.0); Mean Corpuscular Hgb Conc 33.3 g/dL (32.0-36.0); Mean Corpuscular Volume 95.1 fL (80.0-100.0); Mean Platelet Volume 9.8 fL (9.4-12.3); Platelet Count 205 K/uL (130-400); RDW Coefficient of Variation 12.6 % (11.5-14.5); RDW Standard Deviation 43.8 fL (36.4-46.3); White Blood Count 14.58 K/ul (4.8-10.8)
[2022-06-13 07:50] LABS: INR 1.2 (0.9-1.1); Prothrombin Time 12.4 Seconds (9.0-12.0)
[2022-06-13 07:51] LABS: BUN Creatinine Ratio 27.5 (10-20); Creatinine Clr Calc Pharmacy 77.4 ml/min; Est GFR (African American) 100.8 ml/min; Magnesium 1.8 mg/dl (1.7-2.4); Potassium 3.9 mmol/L (3.5-5.1)
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
[2022-06-13] MEDS ORDERED: FERROUS GLUCONATE 324 MG TAB PO SCH (09:00)
[2022-06-13] MEDS: FUROSEMIDE 20 MG TAB PO SCH ×2 (09:34→16:55)
[2022-06-13] MEDS: POTASSIUM CHLORIDE 20 MEQ/15 ML UDC PO SCH (09:37)
[2022-06-13] MEDS: DOCUSATE SODIUM 100 MG CAP PO SCH ×2 (09:38→20:56)
[2022-06-13] MEDS: POLYETHYLENE (MIRALAX) 17 GM PACK PO SCH ×2 (09:38→20:57)
[2022-06-13] MEDS: predniSONE 1 MG TAB PO SCH (09:39)
[2022-06-13] MEDS: ASCORBIC ACID 500 MG TAB PO SCH ×2 (09:39→16:55)
[2022-06-13] MEDS: MULTIVITAMIN TAB PO SCH (09:39)
[2022-06-13] MEDS: METOPROLOL SUCC 25MG EXT REL TAB PO SCH ×2 (10:07→20:56)
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
[2022-06-13] MEDS ORDERED: predniSONE 1 MG TAB PO ONE (13:00)
[2022-06-13] MEDS: ORTHO WARFARIN NOMOGRAM SCH (15:10)
[2022-06-13] MEDS ORDERED: WARFARIN SOD 5 MG TAB PO ONE (16:00)
[2022-06-13] MEDS: POTASSIUM CHLORIDE CRTAB 20 MEQ TABCR PO SCH (20:56)
[2022-06-13] MEDS: GABAPENTIN 300 MG CAP PO SCH (20:57)
[2022-06-13] MEDS: SENNA 8.6 MG TAB PO SCH (20:57)
[2022-06-13] MEDS: MELATONIN 3 MG TAB PO SCH (20:57)
[2022-06-14] MEDS: HYDROmorphone INJ 0.5 MG/0.5 ML SYR IV PRN (04:42)
[2022-06-14] MEDS: ACETAMINOPHEN 500 MG TAB PO SCH ×2 (05:29→13:51)
[2022-06-14] MEDS: LEVOTHYROXINE SODIUM 75 MCG TABLET PO SCH (05:30)
[2022-06-14] MEDS: LIOTHYRONINE SODIUM 25 MCG TAB PO SCH (05:30)
--- NOTE | 2022-06-14 07:59 | Hospitalist Progress Note ---
Date of Service June 14, 2022 Assessment & Plan (1) Osteoarthritis of left knee: Plan: Carla is a 72yo F with a PMHx of HTN, GERD< MR, Afib, Hashimotos, TERESA on CPAP, PMR, CHF, HLD s/p scheduled L TKA POD # 3 S/p left total knee arthroplasty with Dr Cruz 06/11. EBL 100cc. fluids 1700cc WBC elevation likely 2nd to decadron 10mg as given POD#1, patient afebrile Pain control/bowel regimen per primary service *Started iron PO BID per primary service -- issues with constipation at baseline, decreased to once daily and stopped for 11 given constipation No prior iron studies--> added miralax, increased toTID as remaining inpatient DVT prophylaxis per primary service -- patient on coumadin 7.5mg daily for hx afib. --> resumed coumadin per nomogram, monitor at rehab and recommend reaching out to her coag clininc for further recommendations --> Monitor INR at rehab to ensure back to therapeutic range PT/OT per primary service --> initially for home with HH, but anxious about falling at home. Arrangements made for rehab for this afternoon resumed her lasix BID, however patient refusing yesterday (06/13) as not wanting to get out of bed since jernigan removed. encouraged RN to encourage compliance last night.-_> slight volume up today and to continue to monitor weights/encourage compliance with medications and low salt diet at discharge PMR Hx of such Weaning steroids as outpatient--> initially entered at 3mg BID prednisone, confirmed with pt per rheum should be on 1mg daily and did take 06/11 -- updated for dose 06/12 Decadron 8mg PO x 1 given 11 am -- hx PMR, no stress dose steroids needed currently. Follows with Lisbeth Juan from [facility] [place], and states had been able to wean steroids to prednisone 1mg daily given additional 1mg dose prednisone 06/13 for low bp/nausea, possible need for stress dose --> reported improvement today/no issues and can continue her ususal prednisone at discharge Follow up outpatient with Dr Juan with Rheumatology PT/OT consulted (2) Atrial fibrillation: Plan: hx mitral valve insufficinecy s/p mitral valve repair w/ Medtronic annuloplasty ring [facility] [place] in [place], paroxysmal atrial fibrillation s/p MAZE, Hx HFpEF--> follows with Cardiology in [place] (Talat Osorio PA-C). Per note, pt had gone into afib 04/30, and arranged for ANG and cardioversion but patient converted to SR prior to that. Holter didn't show any afib at that time. Elected to continue current therapy/not pursue ablation at that time. Hx hypothyroidism/Hashimotos and on Synthroid/cytomel. No recent TSH in system, will add to AM labs w/ reflex Continue metoprolol succinate 25mg BID Coumadin resumed, INR 1.2 --> [facility] to reflect 7.5mg dose) --> f/u [facility]R at [facility]/coordinate with her coag clinic for further recommendations (3) Kameron's thyroiditis: Plan: TSH wnl 2.23 Continued Synthroid/Cytomel (4) History of sleep apnea: Plan: Hx of such, no CPAP ordered --> ordered and utilizing with nasal pillows faithfully even when napping (5) Hx of congestive heart failure: Plan: CHF with preserved ejection fraction -- last ECHO October 2021 with EF 65-70% No acute decompensation/evidence of volume overload Stress Test 06/04/22: NOrmal myocardial perfusion, no reversible or fixed ischemia, LVSF normal, EF normal. No chest pain, chest pressure, difficulty breathing at bedside Resumed lasix 20mg BID, did have some slight swelling to LE AM 06/12, no evidence for DVT stable currently --> refused BID dosing on 06/13, accepted 06/14 and recommended continued compliance. *If weights >3lb in 24 hours or >5lb/week would rec taking additional dose of lasix with monitoring of electrolytes (6) History of mitral valve disease: Plan: hx repair as above Plan planning for rehab at [facility] today hospitalist service will sign off please call with any questions/concerns Admission and Anticipated Discharge Date Admission Date: June 11, 2022 Supervising Physician Co-Signing Physician Notes PA Supervision Note: I did not personally see or examine the patient today, but I verified all townsend points of SHA Arreaga's assessment and plan with the following exceptions/additions: Slight drop in sodium today likely from some hypervolemia as mentioned above. Watch volume status and adjust lasix as needed, follow BMP at rehab Subjective eval this morning, doing better than yesterday pain controlled with ordered medications orthopedics looking into rehab, CM from [facility] visited and discussed with patient this morning. No fever/chills. Had refused her lasix as jernigan removed last evening, but resumed this morning. Denies increased shortness of breath but is diminished in the bases. Encouraged continued use of lasix and may need additional dosing at rehab pending subsequent weights. Erythema to her knee much improved, no further warmth (although ice pack in place) Planning for [facility] possibly later today if bed available. Questions/concerns addressed at this time. Review of Systems Review of Systems: All systems reviewed & are unremarkable except as noted in HPI & below Physical Exam Physical Exam: General: WD/WN obese female laying falt in bed, sleeping with nasal pillows/CPAP in place HEENT: head normocephalic, atraumatic, mmm, trachea midline without deviation Resp: decreased air movement bilaterally due to decreased effort, no whee zing/crackles, diminished in the bases, 94% on RA CV: RRR, +murmur, trace edema b/l LE (improved from last night), no calf tenderness, pulses palpable, sensation intact, cap refill wnl GI: +BS, +distended, nontender : no jernigan MSK/Neuro: L knee dressing c/d/i, decreased warmth/no erythema, silverlon in place, toes mobile, NVI, pulses palpable Skin: warm, dry Psych: AOx3, cooperative, anxious Results & Data Results & Data ([facility]) Vital Signs (Past 12 Hours) Vital Signs Pulse Resp BP Pulse Ox 06/13/22 20:45 94 H 18 110/72 98 Laboratory Results 06/14/22 06/14/22 06/14/22 Range/Units 08:41 08:41 08:41 WBC 13.69 H (4.8-10.8) K/ul RBC 3.63 L (3.93-5.22) M/uL Hgb 11.6 L (12.0-16.0) g/dl Hct 33.9 L (34.1-44.9) % MCV 93.4 (80.0-100.0) fL MCH 32.0 (25.0-34.0) pg MCHC 34.2 (32.0-36.0) g/dL RDW Std Deviation 44.2 (36.4-46.3) fL RDW Coeff of Vandana 12.8 (11.5-14.5) % Plt Count 256 (130-400) K/uL MPV 10.2 (9.4-12.3) fL PT 13.0 H (9.0-12.0) Seconds INR 1.2 H (0.9-1.1) Sodium 131 L (136-145) mmol/L Potassium 4.4 (3.5-5.1) mmol/L Chloride 99 (98-107) mmol/L Carbon Dioxide 21 (21-32) mmol/L Anion Gap 11 (3-11) BUN 23 (6-23) mg/dl Creatinine 0.95 (0.6-1.2) mg/dl Est Cr Clr Drug Dosing 56.2 ml/min Est GFR ( Amer) 69.4 ml/min Est GFR (Non-Af Amer) 59.8 ml/min BUN/Creatinine Ratio 24.2 H (10-20) Glucose 120 H (70-99(Fasting)) mg/dl Calcium 9.1 (8.5-10.1) mg/dl PG Care Time/CCT Total # of Minutes Spent Total Time Spent with Patient: Total time spent is greater than 50% in coordination of care (as documented) at patient's floor/unit and/or counseling patient: Coding Level of Care Code 26542 Subseq Obs Care Lvl 2 Diagnoses Osteoarthritis of left knee M17.12 Atrial fibrillation I48.91 Kameron's thyroiditis E06.3 History of sleep apnea Z86.69 Hx of congestive heart failure Z86.79 History of mitral valve disease Z86.79
[2022-06-14] MEDS: oxyCODONE HCL IR 5 MG TAB (IMMEDIATE RELEASE) PO PRN ×2 (08:33→12:24)
[2022-06-14] MEDS: POLYETHYLENE (MIRALAX) 17 GM PACK PO SCH ×2 (08:33→13:51)
[2022-06-14] MEDS: predniSONE 1 MG TAB PO SCH (08:33)
[2022-06-14] MEDS: POTASSIUM CHLORIDE CRTAB 20 MEQ TABCR PO SCH (08:33)
[2022-06-14] MEDS: METOPROLOL SUCC 25MG EXT REL TAB PO SCH (08:34)
[2022-06-14] MEDS: ASCORBIC ACID 500 MG TAB PO SCH (08:34)
[2022-06-14] MEDS: FUROSEMIDE 20 MG TAB PO SCH (08:34)
[2022-06-14] MEDS: DOCUSATE SODIUM 100 MG CAP PO SCH (08:34)
[2022-06-14] MEDS: MULTIVITAMIN TAB PO SCH (08:34)
[2022-06-14 09:17] LABS: Hematocrit (blood only) 33.9 % (34.1-44.9); Hemoglobin 11.6 g/dl (12.0-16.0); Mean Corpuscular Hgb Conc 34.2 g/dL (32.0-36.0); Mean Corpuscular Volume 93.4 fL (80.0-100.0); Mean Platelet Volume 10.2 fL (9.4-12.3); Platelet Count 256 K/uL (130-400); RDW Coefficient of Variation 12.8 % (11.5-14.5); RDW Standard Deviation 44.2 fL (36.4-46.3); Red Blood Count 3.63 M/uL (3.93-5.22); White Blood Count 13.69 K/ul (4.8-10.8)
[2022-06-14 09:32] LABS: INR 1.2 (0.9-1.1)
[2022-06-14 09:40] LABS: BUN Creatinine Ratio 24.2 (10-20); Calcium 9.1 mg/dl (8.5-10.1); Creatinine Clr Calc Pharmacy 56.2 ml/min; Est GFR (African American) 69.4 ml/min; Est GFR (Non-African American) 59.8 ml/min; Potassium 4.4 mmol/L (3.5-5.1)
--- NOTE | 2022-06-14 10:04 | Orthopedic Progress Note ---
Date of Service June 14, 2022 Assessment & Plan (1) Osteoarthritis of left knee: Plan: POD #3 s/p L TKA, doing as well as expected. Resume diet. WBAT with walker. OOB to chair. Continue pain control. DVT prophylaxis: TEDs 3 weeks, foot pumps while in hospital, resume Coumadin. Silverlon dressing is clean dry and intact and to be left in place until her 2- week follow-up PT/OT. Appreciate medicine input. D/C planning [facility]. Awaiting bed approval/authorization from her insurance. Follow-up with [facility] orthopedics as previously scheduled. With questions contact our clinic at [phone] Admission and Anticipated Discharge Date Admission Date: June 11, 2022 Subjective This 72-year-old female is day 3 status post left total knee arthroplasty. She states she is doing much better today. She is currently working with physical therapy and states that her pain is much better than it had been yesterday. She states she still has pain when she attempts to flex at her knee. She is still concerned about falling as well. She states she has talked with case management about being placed at [facility] for rehab. We are waiting for bed approval at this point. Currently she denies chest pain, shortness of breath, fever, chills, sweats, numbness or tingling in her left lower extremity. She also denies nausea, vomiting or difficulty voiding. Review of Systems Review of Systems: All systems reviewed & are unremarkable except as noted in Subjective Physical Exam Physical Exam: Left knee: Silverlon dressings are clean dry and in place. Patient is able to perform an active straight leg raise test and actively dorsi and plantarflex her foot. Quad strength is 3 out of 5. She is working on heel slides currently with physical therapy. Light varus and valgus stressing the knee causes no pain. Her calf is soft and supple nontender to palpation. She is neurovascularly intact in the left lower extremity. Results & Data ([facility]) Vital Signs (Past 12 Hours) Vital Signs Temp Pulse Resp BP Pulse Ox O2 Del Method 06/14/22 08:00 36.5 C 88 16 110/77 94 Room Air Diagnostic Findings Laboratory Results WBC 13.69 K/ul (4.8-10.8) H 06/14/22 08:41 RBC 3.63 M/uL (3.93-5.22) L 06/14/22 08:41 Hgb 11.6 g/dl (12.0-16.0) L 06/14/22 08:41 Hct 33.9 % (34.1-44.9) L 06/14/22 08:41 MCV 93.4 fL (80.0-100.0) 06/14/22 08:41 MCH 32.0 pg (25.0-34.0) 06/14/22 08:41 MCHC 34.2 g/dL (32.0-36.0) 06/14/22 08:41 RDW Std Deviation 44.2 fL (36.4-46.3) 06/14/22 08:41 RDW Coeff of Vandana 12.8 % (11.5-14.5) 06/14/22 08:41 Plt Count 256 K/uL (130-400) 06/14/22 08:41 MPV 10.2 fL (9.4-12.3) 06/14/22 08:41 PT 13.0 Seconds (9.0-12.0) H 06/14/22 08:41 INR 1.2 (0.9-1.1) H 06/14/22 08:41 APTT 29.1 Seconds (21.0-31.0) 06/11/22 07:38 PTT Ratio 1.1 06/11/22 07:38 Sodium 131 mmol/L (136-145) L 06/14/22 08:41 Potassium 4.4 mmol/L (3.5-5.1) 06/14/22 08:41 Chloride 99 mmol/L (98-107) 06/14/22 08:41 Carbon Dioxide 21 mmol/L (21-32) 06/14/22 08:41 Anion Gap 11 (3-11) 06/14/22 08:41 BUN 23 mg/dl (6-23) 06/14/22 08:41 Creatinine 0.95 mg/dl (0.6-1.2) 06/14/22 08:41 Est Cr Clr Drug Dosing 56.2 ml/min 06/14/22 08:41 Est GFR ( Amer) 69.4 ml/min 06/14/22 08:41 Est GFR (Non-Af Amer) 59.8 ml/min 06/14/22 08:41 BUN/Creatinine Ratio 24.2 (10-20) H 06/14/22 08:41 Glucose 120 mg/dl (70-99(Fasting)) H 06/14/22 08:41 Calcium 9.1 mg/dl (8.5-10.1) 06/14/22 08:41 Magnesium 1.8 mg/dl (1.7-2.4) 06/13/22 07:15 TSH 2.236 uIu/ml (0.300-4.500) 06/13/22 07:15 Hepatitis C Ab (EIA) NON-REACTIVE (NON-REACTIVE) 06/12/22 06:07 Hep C Ab Signal/Cutoff <0.02 (<1.00) 06/12/22 06:07 SARS-CoV-2, RNA, NAAT NEGATIVE (NEGATIVE) 06/11/22 Unknown Impressions Knee X-Ray 06/11/22 14:37 XR knee LT 1 or 2V routine CLINICAL HISTORY: Postoperative evaluation. COMPARISON: Left knee radiographs April 18, 2022. FINDINGS: Alignment of the total left knee arthroplasty is anatomic. There is no periprosthetic fracture or unexpected radiopaque foreign body. IMPRESSION: Expected findings following total left knee arthroplasty. ACT 112: Negative or not required by law. Electronically signed by: Akin Rodriguez M.D. 06/11/2022 3:01 PM
--- NOTE | 2022-06-14 10:51 | Discharge Summary ---
Date of Service June 14, 2022 Admission HPI Per Admitting Provider Pt was seen and examined bedside. POD #3 s/p left total knee arthroplasty. POD 1 and 2 patient was in a considerable amount of pain, not ambulating safely to go home, and not progressing well with physical therapy. For patient needs and safety she will be going to rehab at [facility]. Today patient is ambulating better on her own and pain is controlled. Working well with PT/OT. Patient feels comfortable being discharged to rehab for continued rehab and care. No major events over night. Vitals are stable. Labs unremarkable. They are tolerating PO intake and voiding adequate amounts. Pt denies F/C, N/V/D, SOB, CP. Pt deemed medically stable and ready for discharge. Principal Diagnosis left knee osteoarthritis s/p left total knee arthroplasty Discharge Exam Left knee: Silverlon dressings are clean dry and in place. Patient is able to perform an active straight leg raise test and actively dorsi and plantarflex her foot. Quad strength is 3 out of 5. She is working on heel [employer] currently with physical therapy. Light varus and valgus stressing the knee causes no pain. Her calf is soft and supple nontender to palpation. She is neurovascularly intact in the left lower extremity. Discharge Data Allergies Allergy/AdvReac Type Severity Reaction Status Date / Time cephalexin Allergy Mild Hives Verified 06/11/22 07:44 fluoxetine [From Prozac] Allergy Mild Hives Verified 06/11/22 07:44 Penicillins Allergy Mild Hives Verified 06/11/22 07:44 Consultations 06/06/22 13:20 Consult Hospitalist Routine Procedures Performed Operation Date: 06/11/22 10:20 Actual Procedures p Left Total Knee Arthroplasty(Left) - Dashawn Cruz MD Ordered Studies 06/11/22 05:00 US - OR guided needle placemen Routine Hospital Course (1) Osteoarthritis of left knee: POD #3 s/p L TKA, doing as well as expected. Resume diet. WBAT with walker. OOB to chair. Continue pain control. DVT prophylaxis: TEDs 3 weeks, foot pumps while in hospital, resume Coumadin. Silverlon dressing is clean dry and intact and to be left in place until her 2- week follow-up PT/OT. Appreciate medicine input. D/C planning [facility]. Awaiting bed approval/authorization from her insurance, hopefully discharging today Follow-up with [facility] orthoped[facility] as previously scheduled. With questions contact our clinic at [phone] Total Time Total Time Spent Total Time Spent (In Minutes): 30 minutes Discharge Plan Discharge Items Patient Disposition: Home - Home Health Services Reason For Visit: Left Knee Pain Discharge Diagnosis: Left knee osteoarthritis s/p left knee arthroplasty Activity: Per Instructions section Weightbearing: Full weightbearing Non-emergency contact: Surgeon Call non-emergency contact if: you have any medication questions, your temperature is above 101, your wound has increased redness, your wound has increased drainage and your wound pain has increased Follow-up/Referrals: Carmen Burkett DO [Primary Care Provider] - Dariela Aden PA-C [Physician Trash Collector Truck Driver] - 06/26/22 10:00 am Diet: Regular Addtl Attending Provider Instructions: ORTHOPEDIC DISCHARGE INSTRUCTIONS -Weight bearing as tolerated with walker to assist in ambulation -Home health/PT x 2 weeks. You will receive home exercises to do on your own for the first two weeks from home PT. Please do these exercises 3 times a day. -Frequently ice, at least 20 minutes 5 times a day. -Elevate operative leg above your heart with pillows/blankets underneath your ankle, never under your knee. This helps to keep the knee in extension and prevent a flexion contracture. -You may shower on Post op Day 3. Leave Mepilex dressing in tact until follow up appt in 2 weeks. Your dressing is water-resistant, meaning you can shower with it on as long as it is in-tact. Letting some running water run over top of it from the shower is okay. You cannot submerge your incision in water. No baths, hot tubs or swimming pools. Keep dressing clean and dry. If your dressing starts to peel off or gets moisture under it after 7 days, home health nurse may reinforce as needed. -DVT prophylaxis: Continue Coumadin, ANJU compression stockings for 3 weeks -While taking Aspirin, if you start to get upset stomach, we recommend taking over the counter Pepcid, 20mg twice a day as long as you are taking the Aspirin -Pain control: oxycodone 5mg every 4-6 hours as needed, Tylenol 500-1000mg every 8 hours -To promote healing, please take 500mg Vitamin C twice a day with meals x 2 weeks and Iron 325 mg twice a day with meals x 2 weeks -While on narcotic pain medication and iron supplement, we recommend you take a stool softener to prevent constipation -Follow up as scheduled in 2 weeks with [facility] for post op evaluation and Zip-line removal. Please call our office sooner @ [phone] if you have any questions or concerns Pending Studies at Discharge: No Stand-Alone Forms: My [facility], Smoking Cessation Medications and DC Order Prescriptions: New oxycodone 5 mg tablet 5 mg PO Q4H Qty: 28 0RF Continued azithromycin 250 mg Capsule 250 mg PO QAM PRN (Reason: dental) liothyronine 25 mcg Tablet 12.5 mcg PO QAM warfarin 7.5 mg Tablet 7.5 mg PO DAILY Rx Instructions: 5x a week Vitamin C 1,000 mg Tablet Extended Release 1,000 mg PO QPM calcium 500 mg Tablet 1,000 mg PO QPM acetaminophen 650 mg Tablet 650 mg PO Q6H PRN (Reason: Pain) potassium chloride 20 mEq/15 mL Liquid 20 meq PO BID levothyroxine 75 mcg Tablet 75 mcg PO QAM prednisone 1 mg Tablet 1 mg PO DAILY vitamin B complex Tablet 1 tab PO QPM furosemide 20 mg Tablet 20 mg PO BID metoprolol succinate 25 mg Tablet Extended Release 24 Hr 25 mg PO BID gabapentin 300 mg (9)- 600 mg (69) Tablet Extended Release 24 Hr 300 mg PO PM melatonin 10 mg Tablet 10 mg PO HS Discharge Orders: Discharge Order (Routine); Ordered 06/14/22 Ordered By: Jacob Lebron Admission Data Admit Date/Time: 06/11/22 14:37 Attending Provider: Dashawn Cruz Admit Provider: Dashawn Cruz Primary Care Provider: Carmen Burkett Other Providers: Miki Wells ; Leti Lopez ; [facility] ; [facility]
[2022-06-14] MEDS ORDERED: bisacodyL 5 MG TABEC PO ONE (10:52)
[2022-06-14] MEDS: ORTHO WARFARIN NOMOGRAM SCH (13:57)
[2022-06-14] MEDS ORDERED: WARFARIN SOD 6 MG TAB PO ONE (16:00)
== END 2022-06-14 15:46 ==
LOC: ASU 06:54 → 3E 06:54